=== PATIENT | male | born 1955 | race Caucasian/White ===

== ENCOUNTER 2022-05-07 13:56 | Outpatient (RCR) | payer SELFPAY | END 2022-05-07 23:59 | LOC: NS 13:56 | DX: Z71.3 Dietary counseling and surveillance (principal); R63.5 Abnormal weight gain | CPT/HCPCS: 97802 ==

== ENCOUNTER 2022-05-30 10:59 | Outpatient (RCR) | payer SELFPAY | END 2022-06-04 23:59 | LOC: NS 10:59 | DX: R63.5 Abnormal weight gain (principal) | CPT/HCPCS: 97803 ==

== ENCOUNTER 2022-06-27 10:48 | Outpatient (RCR) | payer SELFPAY | END 2022-07-05 23:59 | LOC: NS 10:48 | DX: Z71.3 Dietary counseling and surveillance (principal); E66.9 Obesity, unspecified | CPT/HCPCS: 97803 ==

== ENCOUNTER → 2022-09-17 | Outpatient (CLI) | payer BC, SELFPAY ==
[2022-09-17 17:11] LABS: BNP,B-Type NATRIURETIC PEPTIDE 163.8 pg/mL (0-100)
[2022-09-22 09:07] LABS: Immunoglobulin E 91 IU/mL (6-495)
[2022-09-22 20:07] LABS: Alternaria tenuis <0.10 kU/L (Class 0); Anti-Centromere B Ab <0.2 AI (0.0-0.9); Anti-Chromatin <0.2 AI (0.0-0.9); Anti-Jo <0.2 AI (0.0-0.9); Anti-Scleroderma-70 AB <0.2 AI (0.0-0.9); Anti-dsDNA Ab <1 IU/mL (0-9); Ash, White <0.10 kU/L (Class 0); Aspergillus fumigatus <0.10 kU/L (Class 0); Bermuda Grass <0.10 kU/L (Class 0); Birch <0.10 kU/L (Class 0); Black Walnut 2.48 kU/L (Class III); Cedar, Mountain <0.10 kU/L (Class 0); Cladosporium herbarum <0.10 kU/L (Class 0); Cockroach, American <0.10 kU/L (Class 0); Cottonwood <0.10 kU/L (Class 0); D farinae Mite 0.39 kU/L (Class I); D pteronyssinus 0.47 kU/L (Class I); Elm, American White 0.23 kU/L (Class 0/I); Immunoglobulin E 91 IU/mL (6-495); Maple/Box Elder <0.10 kU/L (Class 0); Mouse Urine <0.10 kU/L (Class 0); Mulberry, White <0.10 kU/L (Class 0); Oak, White <0.10 kU/L (Class 0); Pecan 5.39 kU/L (Class IV); Penicillium Notatum 0.19 kU/L (Class 0/I); Pigweed, Rough <0.10 kU/L (Class 0); RNP Ab 0.4 AI (0.0-0.9); Ragweed, Short/Common 0.24 kU/L (Class 0/I); Russian Thistle <0.10 kU/L (Class 0); SJOGREN'S Anti-SS-A test < 0.2 AI (0.0-0.9); SJOGREN'S Anti-SS-B test < 0.2 AI (0.0-0.9); Sheep Sorrel <0.10 kU/L (Class 0); Smith Ab <0.2 AI (0.0-0.9); Sycamore, American <0.10 kU/L (Class 0); Timothy Grass <0.10 kU/L (Class 0)
== END | disposition home or self-care (01) ==
PROVIDERS: Referring Provider Internal Medicine; Visit Provider Internal Medicine
DX: R05.9 Cough, unspecified (principal)
CPT/HCPCS: 36415; 82785; 83880; 86003; 86225; 86235

== ENCOUNTER → 2022-09-24 | Outpatient (CLI) | payer MEDICARE, SELFPAY | END | disposition home or self-care (01) | LOC: SL 09:52 | PROVIDERS: Referring Provider Internal Medicine; Visit Provider Internal Medicine | DX: I50.9 Heart failure, unspecified (principal); I48.20 Chronic atrial fibrillation, unspecified; R05.9 Cough, unspecified; F17.200 Nicotine dependence, unspecified, uncomplicated | CPT/HCPCS: 94060; 94726; 94729; 94762 ==

== ENCOUNTER → 2023-01-28 | Outpatient (CLI) | payer MEDICARE, SELFPAY ==
[2023-01-28 13:14] VITALS: PULSE 101; PULSE 61; PULSE 71; PULSE 85; PULSE 97; PULSE 98; O2SAT 94; O2SAT 95; O2SAT 96
--- NOTE | 2023-01-29 05:47 | WT_ITS ---
PSN 6 Minute Walk Test 6 Minute Walk Test 6 Minute Walk Test: 6 Minute Walk Test PSN:6-Minute Walk Test Start: 01/28/23 13:14 Freq: Status: Active Protocol: RESP.6MINW Document 01/28/23 13:14 SFENTON (Rec: 01/28/23 13:16 SFENTON Desktop) 6 Minute Walk Test Date Performed 01/28/23 Time Performed 13:00 Height 5 ft 10 in Weight: 108.862 kg Weight in Pounds 240.[address]: Rosalba Parish SQUIR[employer] MAN Assistive device used: None Pre-test Oxygen Delivery Method Room Air Pulse Ox 95 Pulse Rate (60-100) 61 Dyspnea Olamide Scale (0-10) 0 Exertion Olamide Scale (6-20) 6 1st minute Oxygen Delivery Method Room Air Pulse Ox 95 Pulse Rate (60-100) 85 2nd minute Oxygen Delivery Method Room Air Pulse Ox 94 Pulse Rate (60-100) 97 3rd minute Oxygen Delivery Method Room Air Pulse Ox 95 Pulse Rate (60-100) 97 4th minute Oxygen Delivery Method Room Air Pulse Ox 95 Pulse Rate (60-100) 98 5th minute Oxygen Delivery Method Room Air Pulse Ox 95 Pulse Rate (60-100) 98 6th minute Oxygen Delivery Method Room Air Pulse Ox 96 Pulse Rate (60-100) 101 H Dyspnea Olamide Scale (0-10) 2 Exertion Olamide Scale (6-20) 12 Post-test Oxygen Delivery Method Room Air Pulse Ox 96 Pulse Rate (60-100) 71 Full Laps Walked 22 Partial Lap, Number of Tiles Walked 10 Total Distance Walked (ft) 1308 Interpretation Interpretation: The patient was able to ambulate 1308 feet over the course of 6 minutes on room air with no assistive devices or breaks. The patient experienced no significant desaturation, but did have a gradual climb and heart rate as high as 101 bpm. These findings are consistent with deconditioning. Recommendations Recommendations: No supplemental oxygen is indicated at this time.
== END | disposition home or self-care (01) ==
PROVIDERS: Referring Provider Nurse Practitioner Acute Care; Visit Provider Nurse Practitioner Acute Care
DX: J44.9 Chronic obstructive pulmonary disease, unspecified (principal)
CPT/HCPCS: 94618

== ENCOUNTER 2023-05-16 06:08 | Day surgery (SDC) | payer MEDICARE, SELFPAY ==
[2023-05-16] VITALS (10 sets, daily range): BP systolic 94–112; BP diastolic 63–86; PULSE 50–109; RESP 16–18; TEMP 36.1–36.6; O2SAT 91–99; BMI 37.0
--- NOTE | 2023-05-16 | GALL_PTH ---
PATHOLOGY RESULTS PATIENT: BHARATHI HARRIS [place] [facility] [place][id number] AGE/SX: 68/M ROOM: RE05/16/[address]: Dr. Vernon Hernández MD : 1955 BED: DIS: 05/16/2023 SPEC #: [id number] RECD: 05/16/23 10:00 STATUS: JOVANY MENJIVAR #: [id number] TIGIST: 05/16/23 00:[address]: Vernon Hernández DEPT: SURGICAL PATHOLOGY RECD BY: Adebayo Reid ENTERED: 05/16/23 10:00 SP TYPE: RASHAWN YI DR: MYAH Regan Tissues: Gallbladder, NOS Procedures: Surgery Specimen Level III HEADER OPERATION: Laparoscopic cholecystectomy with IOC PRE-OP DIAGNOSIS: Sludge in gallbladder, biliary dyskinesia TISSUE SUBMITTED: Gallbladder MICROSCOPIC DIAGNOSIS Gallbladder, cholecystectomy: Chronic cholecystitis and cholelithiasis. AM:ida 05/19/2023 MICROSCOPIC DESCRIPTION Slides are reviewed. GROSS DESCRIPTION Received is one container labeled with the patient's name and designated gallbladder. The specimen consists of a gallbladder measuring 7.0 cm in length and up to 4.0 cm in diameter. The external surface is pink-oneil, smooth and glistening for the most part. Focally it is granular, hemorrhagic and contains cautery artifact. The gallbladder contains green-yellow mucoid bile and four irregular black stones measuring in aggregate 1.0 x 0.5 x 0.3 cm and 0.3 to 0.4 cm in greatest dimension. The mucosa is bile-stained and without any mass lesions. The gallbladder wall measures up to 0.2 cm in thickness. Focal area shows increased amount of subserosal fat. Hris Administrator sections from the gallbladder and the cystic duct are submitted in one cassette. / SJ:ida 05/16/2023 TC:3 CPT: 45335
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
--- NOTE | 2023-05-16 06:27 | EKG12_ITS ---
Test Reason : PRE OP Blood Pressure : / mmHG Vent. Rate : 088 BPM Atrial Rate : 091 BPM P-R Int : 000 ms QRS Dur : 086 ms QT Int : 394 ms P-R-T Axes : 000 026 -13 degrees QTc Int : 476 ms Atrial fibrillation Low voltage QRS Abnormal ECG No previous ECGs available Confirmed by Tim Hubbard ([id number]), television news video editor JOSE SAPP ([id number]) on 05/20/2023 9:46:16 AM Referred By: Vernon Hernández Confirmed By:Tim Hubbard
--- NOTE | 2023-05-16 06:55 | PCM.HP.BLA ---
History and Physical Date of Admission: 05/16/23 Intake Vital Signs 01/28/2313:14 04/23/2412:48 Height 5 ft 10 in 5 ft 10 in Weight: 240 lb 237 lb BMI 34.0 BP 102/68 Blood Pressure Location Rt brachial Position Sitting Respiration 16 Pulse 71 Pulse Oximetry (%) 96 Intake Visit Reasons: UPDATE H&P Chief Complaint: gall bladder update H&P Replenishment Buyer Required: No Is patient in pain?: No Allergies naproxen [From Aleve] Allergy (Unknown, Verified 04/23/23 13:48) Other Medications furosemide 40 mg tablet 40 mg PO DAILY 09/10/22 [History Confirmed 04/23/23] metoprolol tartrate 100 mg tablet 100 mg PO BID 09/10/22 [History Confirmed 04/23/23] rivaroxaban 20 mg tablet (Xarelto) 20 mg PO DAILY 09/10/22 [History Confirmed 04/23/23] sacubitril 97 mg-valsartan 103 mg tablet (Entresto) 1 tab PO BID 09/10/22 [History Confirmed 04/23/23] sildenafil 100 mg tablet 100 mg PO DAILY PRN 09/10/22 [History Confirmed 04/23/23] spironolactone 25 mg tablet 25 mg PO DAILY 09/10/22 [History Confirmed 04/23/23] aspirin 81 mg tablet,delayed release (Adult Aspirin Regimen) 81 mg PO DAILY 09/17/22 [History Confirmed 04/23/23] atorvastatin 40 mg tablet 60 mg PO DAILY 11/06/22 [History Confirmed 04/23/23] prednisone 20 mg tablet 60 mg (3 x 20 mg) PO QDAY #15 tabs 11/06/22 [Rx Confirmed 04/23/23] FOR[facility] Medical History History of allergic rhinitis Lung nodule, multiple Nicotine addiction Surgical History History of bilateral knee replacement (~2014) History of foot surgery History of knee surgery History of lumbar surgery History of rhinoplasty Family History Mother Hyperlipemia HypertensionFather Heart disease Social History number of children: 6 current occupational status: retired Smoking Status: Current every day smoker tobacco type: cigarettes alcohol intake: current alcohol intake frequency: other details: Social drinker HPI HPI HPI: Patient is a 68 y/o M I am seeing for an update history and physical for an elective cholecystectomy. Patient states he has had no increase or change in symptoms. Patient notes abdominal pain intermittently. He denies the pain happens with specific foods. Patient was evaluated by his PCP initially for upper abdominal pain. A RUQ u/s was obtained on 11/14/22 at [place] demonstrating gallbladder polyp and sludge. Patient was evaluated by Dr. Hernández in December of last year. At that time, he was not as symptomatic and did not want his gallbladder removed. he notes his symptoms are now becoming more frequent and would like the gallbladder removed. Patient is on Xarelto for A fib. He notes a myocardial infarction and cardiac stents placed in 2012. 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 He is a smoker and consumes at least 1 beer daily. He denies any previous complications or side effects from anesthesia previously. Patient's previous history per Dr. Hernández: Patient is here because he was found to have sludge in his gallbladder. Patient is not having any complaints he said occasionally he feels a small twinge but he is not having any appreciable pain in that area. ROS General General: No weight change, appetite, fatigue, colon cancer, breast cancer or weakness HEENT HEENT: No difficulty swallowing, eye injury, eye surgery, swollen glands or hoarseness Endo Endocrine: No thyroid disease, diabetes mellitus, thyroid cancer, Hair loss, heat intolerance or cold intolerance Skin Skin: No rash or changing moles Breast Breast: No left breast lump, right breast lump, nipple discharge, breast pain, abnormal mammogram, abnormal US or breast enlargement Musc Musculoskeletal: Yes arthritis; No back problems, rheumatoid arthritis, gout or joint pain Cardio Cardiovascular: Yes heart disease, atrial fibrillation, high blood pressure, heart attack and heart stent; No murmur, pacemaker, palpitations, shortness of breat with exertion or chest pain Psych Psychiatric: No depression, anxiety or hearing voices Resp Respiratory: No shortness of breath, No sleep apnea, No cough, No COPD, No asthma, No emphysema and No wheezing Gastro Gastrointestinal: Yes abdominal pain, No nausea or vomiting, No diarrhea, No constipation, No blood in stool, No acid reflux, No hemorrhoids, No ulcers, Yes gallbladder problem and No black,tarry stools [place] Hematologic: Yes blood thinners, No blood disorders, No bleeding, No anemia and No blood clots Neuro Neurologic: No system reviewed and no additional complaints, except as documented, No as per HPI, No abnormal gait, No abnormal hearing, No abnormal movements, No abnormal speech, No behavioral changes, No burning sensations, No confusion, No convulsions, No disequilibrium, No dizziness, No localized weakness, No frequent falls, No headache(s), No lack of coordination, No loss of vision, No memory loss, Yes numbness, No other visual disturbances, No radicular pain, No restless legs, No sensory deficit, No syncope, Yes tingling, No tremor(s), No weakness and No other Exam Const General: cooperative, healthy appearing, comfortable and no acute distress HENND Head: normal to inspection Eyes General: appearance normal, both eyes and all related structures Neck Neck: normal visual inspection Neck mass: Yes Resp Effort & Inspection: normal respiratory effort Auscultation: clear to auscultation bilaterally Cardio Rate: regular rate Rhythm: regular rhythm GI Inspection: normal to inspection Palpation: soft and nontender Musc Cervical Spine: normal cervical lordosis Skin General: no rashes or lesions noted Neuro General: no focal motor deficits and CN's II-XI intact bilaterally Extrem General: normal to inspection Psych Appearance: grossly normal Affect: normal affect Assessment and Plan Assessment and Plan (1) Sludge in gallbladder: Status: Acute (2) Biliary dyskinesia: Status: Acute Plan Dr. Hernández will plan to perform a laparoscopic cholecystectomy with intraoperative cholangiogram. Procedure details, risks and benefits have been explained to the patient. Patient has had the opportunity to ask and have questions answered. Patient will hold his Xarelto for 3 days prior to the procedure. Patient verbally understands and agrees with the plan. Patient would like to proceed with the proposed procedure. I have examined the patient and the H&P has been reviewed. There are no clinical changes since date of exam.
[2023-05-16] MEDS: Lactated Ringers 1,000 ML 15 ML IV ×2 (06:56→09:14)
[2023-05-16] MEDS: Cefotetan 2 GM in 0.9% NS 100 ML IV (07:24)
--- NOTE | 2023-05-16 07:30 | RAD_ITS ---
INDICATION: PAIN EXAMINATION/TECHNIQUE: Cine views intraoperative cholangiogram was obtained.. Total Fluoroscopic Time: 16.9 seconds. OR Radiation dosage index: 12.46 mGy COMPARISON: No relevant prior comparison study available FINDINGS: No filling defects are identified. There is no biliary ductal dilatation. There is free passage into the duodenum. RAD/Cholangiogram/ O R,Initial IMPRESSION: No constant filling defect or common bile duct obstruction is seen. Electronically Signed: Ace Marte MD at 9:23 EST ,
[2023-05-16] MEDS: Bupivacaine 0.25% 30 ML Vial (08:13)
--- NOTE | 2023-05-16 08:20 | PCM.OPRPT ---
Report of Operation Date of Procedure: 05/16/23 Pre-Operative Diagnosis: Biliary colic and gallbladder sludge Post-Operative Diagnosis: Same Surgery/Procedure Performed:: Laparoscopic cholecystectomy with cholangiograms Type of Anesthesia: General/Regional Specimen's removed: Gallbladder Estimated Blood Loss (mL): 10 Description of Procedure: After obtaining informed consent patient was brought back to the operating room. General anesthesia was induced. The abdomen was prepped and draped in usual sterile fashion. A small midline incision was made superior to the umbilicus and deepened to the level of fascia. The fascia was elevated and incised. Next the peritoneum was elevated and incised in the same fashion. Finger sweep was performed and the Tinoco trocar was placed into the abdomen. The balloon was inflated. The abdomen was inflated to 15 mmHg. Next a camera was introduced into the abdomen and the abdomen was inspected. Next under direct visualization three 5-mm ports were placed one subxiphoid and 2 subcostal. Next the gallbladder was elevated and retracted toward the right shoulder. The peritoneum was stripped from the gallbladder. The infundibulum was located and retracted laterally. Next the triangle of Calot was dissected and the cystic duct and cystic artery were identified. Cholangiograms were performed. The Chowdhury clamp was used to clamp across the infundibulum and the catheter needle was inserted into the gallbladder. Under fluoroscopy contrast was instilled into the gallbladder and the common duct, cystic duct as well as proximal hepatic ducts were identified. There was good filling of the duodenum. There were no filling defects noted in the common bile duct. The clamp was removed as well as the needle and the infundibulum was grasped once more. Three hemolock clips were placed across the cystic duct. The cystic duct was then divided leaving 2 clips on the stump. The cystic artery was clipped and divided in the same fashion. The hook cautery was then used to take the gallbladder off of the gallbladder bed. Hemostasis was obtained. Gallbladder fossa was irrigated and no active bleeding or bile leakage was noted. Next the camera was introduced in the subxiphoid port. An Endopouch bag was placed through the umbilical port and the gallbladder was placed into it. The gallbladder was then removed through the umbilical incision. The camera was then reinserted through the umbilical port. The gallbladder fossa was inspected once more and noted to be hemostatic with no leaking bile. The abdomen was suctioned dry. The 5 mm ports were removed under direct visualization. The umbilical port was then removed and the air was removed from the abdomen. Next using an 0 Vicryl suture the umbilical fascia was closed in a [id number] fashion. The umbilical port site was irrigated local anesthetic was administered to all the incisions. All the incisions were closed with interrupted subcuticular 4-0 Monocryl sutures followed by Steri-Strips and dressings. The patient was awoken and taken to PACU in stable condition. Admit VTE Documentation VTE Mechan Device Prophylaxis: SCD's
--- NOTE | 2023-05-16 08:21 | DCINST_ITS ---
Discharge Instructions Procedure Gallbladder Diet Discharge Diet: Light diet - advance as tolerated Activity Discharge Activity: May Not Drive (for 2-3 days or while taking narcotic pain medications.) and - (Do not drive, work heavy equipment or sign legal documents for 24 hours.) May shower in (days): 1 Lifting Restrictions: 20 lbs for 2 weeks Additional Activity Instructions:: Pain medication may cause nausea. You should typically eat light foods as you take your pain medications. Pain medication may also cause constipation. If this is a problem for you, please discuss with your doctor. Dressing / Incision Call your doctor if your incision/area has: Continuous Slow Oozing, Sudden Increased Bleeding, Increased Pain/ Swelling, Increased Redness and Foul Smelling Discharge Call your doctor if you observe: Fever of 101 or Higher Suture Line Care: Avoid Pulling/Pushing and Avoid Pinching/Bending Remove Dressing in: 2 days Additional Dressing/Incision Instructions:: Leave operative bandaids on for 2 days. Remove Steri-Strips in 7 to 10 days. Resume aspirin and Xarelto on Friday. Alternate ibuprofen and Tylenol for pain, oxycodone for breakthrough pain. Follow Up Care Please Follow Up With: Vernon Hernández MD When: Please call to schedule 2 week follow up appointment. [phone] Test Results: Test results from this visit will be discussed in further detail at your follow- up appointment, if applicable. Discharge Plan Admission Attending Provider: Vernon Hernández Primary Care Provider: Janet Seaman Discharge Orders/Prescriptions Prescriptions: New oxycodone 5 mg Tablet 5 - 10 mg PO Q4H PRN PRN (Reason: Pain Score 4-10/10) 5 Days Qty: 20 0RF No Action aspirin [Adult Aspirin Regimen] 81 mg tablet,delayed release (DR/EC) 81 mg PO DAILY sildenafil 100 mg tablet 100 mg PO DAILY PRN (Reason: sexual activity) Rx Instructions: administer 30 minutes to 4 hours before activity Xarelto 20 mg tablet 20 mg PO DAILY Patient Comments: LAST DOSE 2/5 AM Rx Instructions: must administer with evening meal metoprolol tartrate 100 mg tablet 100 mg PO BID Entresto 97-103 mg tablet 1 tab PO BID spironolactone 25 mg tablet 25 mg PO DAILY furosemide 40 mg tablet 40 mg PO DAILY atorvastatin 40 mg tablet 60 mg PO DAILY Referrals / Follow Up: Janet Seaman PA [Primary Care Provider] - Disposition Disposition (needs filled in before D/C Order can be placed): Home, Self Care
[2023-05-16] MEDS: oxyCODONE 5 MG Tablet PO (09:44)
== END 2023-05-16 11:53 | disposition home or self-care (01) ==
LOC: SDC 06:11 → AC 06:17
PROVIDERS: Referring Provider Surgery; Visit Provider Surgery
PROC: (CPT 47610; principal; 2023-05-16 07:10)
DX: K80.10 Calculus of gallbladder with chronic cholecystitis without obstruction (principal); J44.9 Chronic obstructive pulmonary disease, unspecified; I50.9 Heart failure, unspecified; I11.0 Hypertensive heart disease with heart failure; I48.91 Unspecified atrial fibrillation; K80.50 Calculus of bile duct without cholangitis or cholecystitis without obstruction; F17.210 Nicotine dependence, cigarettes, uncomplicated; K82.8 Other specified diseases of gallbladder; K83.8 Other specified diseases of biliary tract; Z79.01 Long term (current) use of anticoagulants; Z95.5 Presence of coronary angioplasty implant and graft; Z79.82 Long term (current) use of aspirin; I25.10 Atherosclerotic heart disease of native coronary artery without angina pectoris; E78.00 Pure hypercholesterolemia, unspecified
CPT/HCPCS: 47563; 00790; 74300; 76000; 88304; 93005; J7120; J2405

== ENCOUNTER → 2023-08-27 | Outpatient (CLI) | payer MEDICARE, SELFPAY ==
--- NOTE | 2023-08-27 13:03 | CT_ITS ---
STUDY: LOW DOSE CT LUNG CANCER SCREENING REASON FOR EXAM: Male, 68 years old. Three quarter pack per day smoker x50 years RADIATION DOSAGE (If Supplied By Facility): CTDIvol = ( 4.02 ) mGy, DLP = ( 133.91 ) mGycm TECHNIQUE: No contrast was administered. Low dose technique was utilized (average mAS-38 and kVp 120). 1.25 mm axial source images with a slice interval of 1.25-mm were reconstructed in lung windows. 2.5 mm axial source images with a slice interval of 2.5-mm were reconstructed in lung windows. 5.0 mm axial source images with a slice interval of 5.0-mm were reconstructed in soft tissue windows. COMPARISON: None. FINDINGS: Lung windows show the lungs to be normally expanded. Chronic interstitial changes noted in both lung palacio with peribronchial thickening suggesting chronic bronchitis. No evidence of an organized infiltrate or effusion. No suspicious noncalcified mass or nodule. Limited soft tissue windows show normal-appearing thyroid gland. There are calcified coronary vessels. No pleural or pericardial effusions. Bony structures show degenerative change, limited cuts of the upper abdomen do not show suspicious abnormality CT/Low Dose CT Lung Screening IMPRESSION: Lung-RADS category 2 - Continue annual screening with LDCT in 12 months. IMPORTANT NOTES FOR USE: ACR Lung-RADS Version 1.1 Assessment Categories Release Date: 2018 Category: Coded 0-4 bases on nodule(s) with highest degree of suspicion. Negative screen is defined as categories 1 and 2; a positive screen is defined as categories 3 and 4. Category 3 and 4A nodules that are unchanged on interval CT should be coded as category 2, and individuals returned to screening in 12 months. Category 4X: Category 3 or 4 nodules with additional imaging findings that increase the suspicion of lung cancer, such as spiculation, GGN that doubles in size in 1 year, enlarged lymph notes, etc. Category Modifiers: S (significant finding unrelated to lung cancer) Electronically Signed: Neftali Cisse MD at 15:17 EDT ,
== END | disposition home or self-care (01) ==
LOC: CT 13:03
PROVIDERS: Referring Provider Nurse Practitioner Acute Care; Visit Provider Nurse Practitioner Acute Care
DX: F17.210 Nicotine dependence, cigarettes, uncomplicated (principal)
CPT/HCPCS: 71271

== ENCOUNTER → 2024-01-15 | Outpatient (CLI) | payer MEDICARE, SELFPAY ==
--- NOTE | 2024-01-15 | CYST_PTH ---
PATIENT: BHARATHI HARRIS LOC: [facility] U#:[id number] AGE/SX: 68/M ROOM: RE01/15/[address]: AME Delgado : 1955 BED: DIS: 01/15/2024 SPEC #: [id number] RECD: 01/16/24 10:36 STATUS: [facility] OTTO #: [id number] TIGIST: 01/15/24 00:[address]: Sharonda Crisostomo NP DEPT: SURGICAL PATHOLOGY RECD BY: Carissa Singleton ENTERED: 01/16/24 10:37 SP TYPE: Cyst OTHR DR: MD Janet Arias PA Tissues: CYST Procedures: Surgery Specimen Level III HEADER OPERATION: Biopsy scrotum cyst PRE-OP DIAGNOSIS: Scrotum cyst TISSUE SUBMITTED: Scrotum cyst MICROSCOPIC DIAGNOSIS Scrotal cyst, excision: Benign fibroepithelial polyp. AM.mr 01/19/2024 MICROSCOPIC DESCRIPTION Slides are reviewed. GROSS DESCRIPTION Received is one container labeled with the patient's name and not further designated. The specimen consists of a single irregular fragment of oneil tissue measuring 0.6 x 0.5 x 0.1cm. The specimen is submitted in its entirety in one cassette. AM. 01/16/2024 TC:5 CPT:66511
== END | disposition home or self-care (01) ==
LOC: LABSPEC 17:13
PROVIDERS: Referring Provider Nurse Practitioner Family; Visit Provider Nurse Practitioner Family
DX: L02.215 Cutaneous abscess of perineum (principal)
CPT/HCPCS: 87070; 87075; 87077; 87186; 87205; 88304

== ENCOUNTER 2024-01-26 11:15 | Outpatient (RCR) | payer MEDICARE, SELFPAY ==
[2024-01-19 10:03] VITALS: BP 88/57; PULSE 77; RESP 16; TEMP 36.3
--- NOTE | 2024-01-19 11:21 | HP.PCM_ITS ---
History of Present Illness Date of Service: 01/19/24 Chief Complaint: Right perineum/scrotal area wound History of Wound: Romaine Carpenter is a 68-year-old male who presents for evaluation of a potentially infected perineal epidermal inclusion cyst. He reports the cyst has been there for several weeks but is recently become hot and painful. It is located on the very posterior aspect of his scrotum/on his perineum on the right side. Patient was prescribed Keflex by a previous provider and this helped some, but he was referred to me for definitive management. Pt has a history of afib (currently on blood thinner), cardiac catherization, lung nodule and high cholesterol. He does not smoke. On 01/15/24 Dr. Gary excised the cyst in the office. Pathology and cultures are pending. Patient has been doing Sitz baths twice daily. He has been tolerating the Keflex. Today he denies any fever, chills, nausea or vomiting. Progress of Wound: Small wound on right perineum/scrotal area. It is stable. There is a black scab from the silver nitrate that was used when it was excised. He states he is not having any discomfort. He is tolerating his sitz baths and Keflex well. His pathology and wound cultures are not back yet. [facility] Medical History High cholesterol Excessive bleeding Smoker Cardiology follow-up encounter History of atrial fibrillation History of allergic rhinitis Lung nodule, multiple Nicotine addiction Home Medications ?Medication ?Instructions ?Recorded ?Last Taken ?Type furosemide 40 mg tablet 40 mg PO DAILY 09/10/22 Unknown History metoprolol tartrate 100 mg tablet 100 mg PO BID 09/10/22 Unknown History rivaroxaban 20 mg tablet (Xarelto) 20 mg PO DAILY 09/10/22 Unknown History sacubitril 97 mg-valsartan 103 mg 1 tab PO BID 09/10/22 Unknown History tablet (Entresto) sildenafil 100 mg tablet 100 mg PO DAILY PRN sexual activity 09/10/22 Unknown History spironolactone 25 mg tablet 25 mg PO DAILY 09/10/22 Unknown History aspirin 81 mg tablet,delayed 81 mg PO DAILY 09/17/22 Unknown History release (Adult Aspirin Regimen) atorvastatin 40 mg tablet 60 mg PO DAILY 11/06/22 Unknown History varenicline 0.5 mg (11)-1 mg (42) 1 tab PO BID 11/11/23 Unknown History tablets in a dose pack cephalexin 500 mg capsule 500 mg PO BID 01/15/24 Unknown History Allergy/AdvReac Type Severity Reaction Status Date / Time naproxen (From Aleve) Allergy Unknown Hives Verified 01/19/24 10:22 Family History Mother Hyperlipemia Hypertension Father Heart disease Surgical History History of coronary artery stent placement History of foot surgery History of rhinoplasty History of knee surgery History of lumbar surgery History of bilateral knee replacement (~2014) Social History number of children: 6 current occupational status: retired Smoking Status: Current every day smoker tobacco type: cigarettes alcohol intake: current alcohol intake frequency: other details: Social drinker additional social history: denies vaping, denies marijuana use, denies edibles, takes aspirin daily, denies ibuprofen use denies hx of blood clotting issues. ROS Constitutional Constitutional: Denies chills or fever(s) Eyes Eyes: Reports none ENT HEENT: Reports none Cardiovascular Cardiovascular: Denies chest pain or dyspnea Respiratory/Chest Respiratory/Chest: Denies cough or dyspnea Gastrointestinal Gastrointestinal: Denies diarrhea, nausea or vomiting Genitourinary Genitourinary: Reports none Musculoskeletal Musculoskeletal: Reports none Integumentary Integumentary: Reports wounds Neurologic Neurologic: Reports none Psychiatric Psychiatric: Reports none Endocrine Endocrinology: Reports none Hematologic/Lymphatic Hematologic/Lymphatic: Reports none Allergic/Immunologic Allergic/Immunologic: Reports none Vital Signs Vital Signs Vital Signs: 01/19/24 10:03 Temperature 97.4 F L Temperature Source Temporal Pulse Rate 77 Respiratory Rate 16 Blood Pressure 88/57 L Blood Pressure Mean 67 Blood Pressure Source Monitor Physical Exam Const alert and oriented x3 General Appearance: cooperative and comfortable HEENT normocephalic Head and Scalp: atraumatic Eyes General Eye: normal appearance of both eyes Neck full ROM Resp normal respiratory effort Effort and Inspection: able to speak in complete sentences Cardio regular rate GI non-tender Back/Spine normal ROM Extremity full ROM Skin Wound Narrative: Small wound on right perineum near scrotum. No erythema. It is healing well. There is a black scab in place on the area (from the silver nitrate used when excising the area). Neuro oriented x3 and moves all extremities Psych mental status grossly normal, thought process normal and cooperative Debridement Note Debridement Note No debridement was completed: No debridement was completed today Post-Debridement Measurements and Additional Note: Post-Debridement Measurements/Treatment CLARA - Nurse 1 - General Ulcer Assessment Start: 01/19/24 10:00 Freq: Status: Active Protocol: FERN Activity Type Activity Date Activity User E-sign Co-sign Detail Recorded Client Recorded Date Recorded By Document 01/19/24 10:03 DL [id number] 01/19/24 10:19 DL 01/19/24 10:03 WC - Today's Visit Information Type of service Initial Visit Arrival Mode Ambulatory Transfer Assistance None Patient Identification Verified (Name & Yes ) Patient Requires Transmission-Based No Precautions Vital Signs Temperature (97.8 F-99.1 F) 97.4 F L Temperature Source Temporal Pulse Rate (60-100) 77 Pulse Location Monitor Respiratory Rate (12-18) 16 Respiratory rate source Observation Blood Pressure (90/60-120/80) 88/57 L Blood Pressure Mean 67 Source Monitor Pain Scale: 0-10 Numeric Is Patient Pain Free? Yes Communication Assessment Preferred language [place]ian Payroll Consultant Required No Able to Read Yes Able to Write No Communication Tools None Caregiver Communication Skills No Impairment Impairment Left Hearing Abillity Normal Visual Assistive Devices None Teaching Assessment Preferences Verbal,Written, Demonstration Barriers to Learning None Readiness To Learn Good Willingness to Engage in Self Management Med Activies Readiness to Engage in Self Management Med Activities Anxiety Level Calm Cooperation Cooperative Perception Coherent Interest in Health Problem Asks Questions Education Importance Acknowledges Need Does Patient Smoke tobacco or other Yes substances Smoking Status Current every day smoker Is Patient Diabetic No Functional Assessment Recent Decline in Ability to Perform Denies Any Declines Culture/Anabaptist/Yarn Sizer Cultural/Anabaptist Needs that may affect No Treatment Plan Would you allow our hospital guide dog trainer to No meet you for the purpose of spiritual/ emotional support? Yarn Sizer to contact place of buddhist No Teaching: Wound Center *Welcome to the Wound Center -Person Taught Patient CLARA - Nurse 1 - General Ulcer Measurement Start: 01/19/24 10:00 Freq: Status: Active Protocol: Activity Type Activity Date Activity User E-sign Co-sign Detail Recorded Client Recorded Date Recorded By Document 01/19/24 10:03 [id number] 01/19/24 10:19 DL 01/19/24 10:03 Wound Center Nurse 1 #1 Scrotum/Perineum -Current Size (cm) - Length 0.7 -Current Size (cm) - Width 0.5 -Current Size (cm) - Depth 0.2 -Total Square Cm 0.35 -Photo Taken Yes -Exudate Amt None Present -Wound Margin Distinct, Outline Attached -Granulation Amt None Present (0 %) -Necrosis Amt Large (67-100%) -Necrotic Tissue Type Adherent Slough -Structure Exposed N/A -Texture (Jenna-wound Skin Appearance) Scarring -Moisture (Jenna-wound Skin Appearance) No Abnormality -Color (Jenna-wound Skin Appearance) No Abnormality -Temperature (Jenna-wound Skin No Abnormality Appearance) (Pt Warm) -Tenderness on Palpation (Jenna-wound No Skin Appearance) -Ulcer Cleansing Soap and Water -Anesthetic Used 5% Lidocaine Gel - Nurse 2 - General Ulcer CM Notes Start: 01/19/24 10:00 Freq: Status: Active Protocol: Activity Type Activity Date Activity User E-sign Co-sign Detail Recorded Client Recorded Date Recorded By Document 01/19/24 10:33 [facility] [id number] 01/19/24 10:38 [facility] 01/19/24 10:33 Wound Center Nurse 2 -Time 10:34 -Post Debridement (cm) - Length 0.1 -Post Debridement (cm) - Width 0.1 -Post Debridement (cm) - Depth 0.1 -Total Square (Post) (cm) 0.01 -Area of Debridement (cm) - Length 0.1 -Area of Debridement (cm) - Width 0.1 -Total Square (Area) (cm) 0.01 -Wound/Ulcer Outcome Not Healed -Bleeding Controlled with NA Pain Scale: 0-10 Numeric Is Patient Pain Free? Yes - Nurse 3 - General Ulcer D/C NN Start: 01/19/24 10:00 Freq: Status: Active Protocol: Activity Type Activity Date Activity User E-sign Co-sign Detail Recorded Client Recorded Date Recorded By Document 01/19/24 10:54 [id number] 01/19/24 10:57 DL 10/14/24 10:54 Wound Care Center Nurse 3 #1 Scrotum/Perineum -Ulcer Cleansing Rinsed/ Irrigated with Saline -Foul Odor after Cleansing No -Wound Comment(s) No dressing needed, pt to continue Sitz Baths as previously ordered Treatment Response Procedure Tolerated Well Pain Scale: 0-10 Numeric Is Patient Pain Free? Yes WC - Visit Discharge Discharge Condition Stable Ambulatory Status Ambulatory Transportation Private Auto Charges/Coding Procedures Integumentary [id number]: [id number] Global Visit ((10 day global)) Assessment/Plan Assessment/Plan (1) Abscess of perineum: CODE(S): L02.215 - Cutaneous abscess of perineum (2) Smoking greater than 20 pack years: CODE(S): F17.210 - Nicotine dependence, cigarettes, uncomplicated PLAN: Plan Patient seen at the wound healing center today for follow up from the excision of the cyst from last week. He states he is doing well with the sitz baths. The pathology and the cultures are still pending. Continue Keflex and the sitz baths. Will phone him with results from the pathology and cultures. Encouraged patient to stop smoking as it may have deleterious effects on wound healing. Follow up one week.
--- NOTE | 2024-01-20 08:59 | WC ---
PHOTO JASS AREA 01/19/24
[2024-01-26 08:13] VITALS: BP 82/42; PULSE 109; RESP 18; TEMP 36.7
--- NOTE | 2024-01-26 11:04 | PCM.WC.PN ---
History of Present Illness Date of Service: 01/26/24 Chief Complaint: Right perineum/scrotal area wound History of Wound: Romaine Carpenter is a 68-year-old male who presents for evaluation of a potentially infected perineal epidermal inclusion cyst. He reports the cyst has been there for several weeks but is recently become hot and painful. It is located on the very posterior aspect of his scrotum/on his perineum on the right side. Patient was prescribed Keflex by a previous provider and this helped some, but he was referred to me for definitive management. Pt has a history of afib (currently on blood thinner), cardiac catherization, lung nodule and high cholesterol. He does not smoke. On 01/15/24 Dr. Gary excised the cyst in the office. Pathology showed benign fibroepithelial polyp. Wound culture showed Winkia neuii (very rare) and MRSE (very rare). On 01/21/24 I spoke with both the clinical pharmacist about these culture results and then infectious disease, Dr. Vilchis. Patient was not having any clinical signs of infection. Dr. Vilchis stated that these bacteria do not need treated since is showing very rare amount and most likely is contaminant and patient is not having any clinical signs of infection. Patient has been doing Sitz baths twice daily. He tolerated the Keflex. Today he denies any fever, chills, nausea or vomiting. Progress of Wound: The small wound on right perineum/scrotal area is healed. He states he stopped doing sitz baths a couple days ago. There is no clinical sign of infection. He has a healed scar on his right buttocks from a previous sore that healed on its own. He states that it does not cause him any discomfort, it is not erythematous and is healed. His pathology showed benign fibroepithelial polyp. Objective Data Objective Data Vital Signs: Vital Signs Temp Pulse Resp BP O2 Del Method 98.0 F 109 H 18 82/42 L Room Air 01/26/24 08:13 01/26/24 08:13 01/26/24 08:13 01/26/24 08:13 01/26/24 08:13 Oxygen Delivery Method Room Air Charges/Coding Visit Charges Office Visits / Consults: 98465 OV L3 Est 20min Physical Exam Const alert and oriented x3 General Appearance: cooperative and comfortable HEENT normocephalic Head and Scalp: atraumatic Eyes General Eye: normal appearance of both eyes Neck full ROM Resp normal respiratory effort Effort and Inspection: able to speak in complete sentences Cardio regular rate GI non-tender Back/Spine normal ROM Extremity full ROM Skin Wound Narrative: Small wound on right perineum near scrotum is healed. No erythema. No clinical signs of infection. Neuro oriented x3 and moves all extremities Psych mental status grossly normal, thought process normal and cooperative Debridement Note Debridement Note Post-Debridement Measurements and Additional Note: Post-Debridement Measurements/Treatment - Nurse 1 - General Ulcer Assessment Start: 01/19/24 10:00 Freq: Status: Active Protocol: [email or web address] Activity Type Activity Date Activity User E-sign Co-sign Detail Recorded Client Recorded Date Recorded By Document 01/19/24 10:03 DL [id number] 01/19/24 10:19 DL Document 01/26/24 08:13 KW [id number] 01/26/24 08:18 KW 01/19/24 01/26/24 10:03 08:13 - Today's Visit Information Type of service Initial Visit Follow-up Visit (Physician/METAL RECLAMATION KETTLE TENDER ) Arrival Mode Ambulatory Ambulatory Transfer Assistance None Patient Identification Verified (Name & Yes Yes ) Patient Requires Transmission-Based No Precautions Vital Signs Temperature (97.8 F-99.1 F) 97.4 F L 98.0 F Temperature Source Temporal Temporal Pulse Rate (60-100) 77 109 H Pulse Location Monitor Monitor Respiratory Rate (12-18) 16 18 Respiratory rate source Observation Observation Oxygen Delivery Method Room Air Blood Pressure (90/60-120/80) 88/57 L 82/42 L Blood Pressure Mean (mm Hg) 67 55 Source Monitor Monitor Position Semi-Fowlers Blood Pressure Location Right Arm History Since Last Visit- (Skip if this is Patient's initial visit) Have you changed medications since your No last visit? Any new allergies or adverse reactions No Had a fall/change in ADL's that may No increase risk of falls Signs or symptoms of abuse and/or No neglect since last visit Have you been in the hospital since your No last visit? Has dressing in place as prescribed Yes Has compression in place as prescribed N/A Has offloadiing in place as prescribed N/A Experienced any changes in pain level or No management Left Footwear Regular Shoe Right Footwear Regular Shoe Pain Scale: 0-10 Numeric Is Patient Pain Free? Yes Yes Communication Assessment Preferred language [place] [employer] [place] Required No Able to Read Yes Able to Write No Communication Tools None Caregiver Communication Skills No Impairment Impairment Left Hearing Abillity Normal Visual Assistive Devices None Teaching Assessment Preferences Verbal,Written, Demonstration Barriers to Learning None Readiness To Learn Good Willingness to Engage in Self Management Med Activies Readiness to Engage in Self Management Med Activities Anxiety Level Calm Cooperation Cooperative Perception Coherent Interest in Health Problem Asks Questions Education Importance Acknowledges Need Does Patient Smoke tobacco or other Yes substances Smoking Status Current every day smoker Is Patient Diabetic No Functional Assessment Recent Decline in Ability to Perform Denies Any Declines Culture/Latter Day/Moderate Needs Teacher Cultural/Latter Day Needs that may affect No Treatment Plan Would you allow our hospital utilization management nurse to No meet you for the purpose of spiritual/ emotional support? Moderate Needs Teacher to contact place of pentecostalism No Teaching: Wound Center *Welcome to the Wound Center -Person Taught Patient WC - Nurse 1 - General Ulcer Measurement Start: 01/19/24 10:00 Freq: Status: Active Protocol: Activity Type Activity Date Activity User E-sign Co-sign Detail Recorded Client Recorded Date Recorded By Document 01/19/24 10:03 DL [id number] 01/19/24 10:19 DL Document 01/26/24 08:13 KW [id number] 01/26/24 08:18 KW 01/19/24 01/26/24 10:03 08:13 Wound Center Nurse 1 #1 Scrotum/Perineum -Current Size (cm) - Length 0.7 0.1 -Current Size (cm) - Width 0.5 0.1 -Current Size (cm) - Depth 0.2 0.1 -Total Square Cm 0.35 0.01 -Photo Taken Yes -Exudate Amt None Present None Present -Wound Margin Distinct, Outline Attached -Granulation Amt None Present (0 %) -Necrosis Amt Large (67-100%) -Necrotic Tissue Type Adherent Slough -Structure Exposed N/A -Texture (Jenna-wound Skin Appearance) Scarring Assessed -Moisture (Jenna-wound Skin Appearance) No Abnormality Assessed -Color (Jenna-wound Skin Appearance) No Abnormality Assessed -Temperature (Jenna-wound Skin No Abnormality No Abnormality Appearance) (Pt Warm) (Pt Warm) -Tenderness on Palpation (Jenna-wound No No Skin Appearance) -Ulcer Cleansing Soap and Water -Foul Odor after Cleansing No -Anesthetic Used 5% Lidocaine Gel - Nurse 2 - General Ulcer CM Notes Start: 01/19/24 10:00 Freq: Status: Active Protocol: Activity Type Activity Date Activity User E-sign Co-sign Detail Recorded Client Recorded Date Recorded By Document 01/19/24 10:33 [facility] [id number] 01/19/24 10:38 [facility] Document 01/26/24 08:44 ARIS [id number] 01/26/24 08:48 01/19/24 01/26/24 10:33 08:44 Wound Center Nurse 2 #1 Scrotum/Perineum -Time 10:34 -Correct Patient No -Correct Side, Site, Position No -Correct Procedure No -Procedure Performed No -Post Debridement (cm) - Length 0.1 0 -Post Debridement (cm) - Width 0.1 0 -Post Debridement (cm) - Depth 0.1 0 -Total Square (Post) (cm) 0.01 0 -Area of Debridement (cm) - Length 0.1 0 -Area of Debridement (cm) - Width 0.1 0 -Total Square (Area) (cm) 0.01 0 -Wound/Ulcer Outcome Not Healed Healed- Epithelialized -Bleeding Controlled with NA Pain Scale: 0-10 Numeric Is Patient Pain Free? Yes Yes - Nurse 3 - General Ulcer D/C NN Start: 01/19/24 10:00 Freq: Status: Active Protocol: Activity Type Activity Date Activity User E-sign Co-sign Detail Recorded Client Recorded Date Recorded By Document 01/19/24 10:54 [id number] 01/19/24 10:57 Document 01/26/24 08:49 ARIS [id number] 01/26/24 08:49 01/19/24 01/26/24 10:54 08:49 Wound Care Center Nurse 3 #1 Scrotum/Perineum -Ulcer Cleansing Rinsed/ Irrigated with Saline -Foul Odor after Cleansing No -Wound Comment(s) No dressing needed, pt to continue Sitz Baths as previously ordered Treatment Response Procedure Tolerated Well Pain Scale: 0-10 Numeric Is Patient Pain Free? Yes Yes WC - Visit Discharge Discharge Condition Stable Stable Ambulatory Status Ambulatory Ambulatory Transportation Private Auto Private Auto Medication Reconcilliation completed & Yes provided to patient/care provider Clinical Summary of Care Provided Yes Assessment/Plan Assessment/Plan (1) Abscess of perineum: CODE(S): L02.215 - Cutaneous abscess of perineum (2) Smoking greater than 20 pack years: CODE(S): F17.210 - Nicotine dependence, cigarettes, uncomplicated PLAN: Plan Patient seen at the wound healing center today for follow up from the excision of the cyst from last week. He states he is doing well with the sitz baths. Pathology from 01/15/24 showed benign fibroepithelial polyp Wound culture showed Winkia neuii (very rare) and MRSE (very rare). On 01/21/24 I spoke with infectious disease, Dr. Vilchis, about these culture results. Patient was not having any clinical signs of infection. He stated that these bacteria do not need treated since is showing very rare amount and most likely is contaminant. Completed Keflex. Encouraged patient to stop smoking as it may have deleterious effects on wound healing. Follow up 3 months in our office. Instructed him to come in sooner if he develops any signs of infection.
== END 2024-01-26 16:58 | disposition home or self-care (01) ==
LOC: WC 11:15
PROVIDERS: Referring Provider Surgery Plastic and Reconstructive Surgery; Visit Provider Nurse Practitioner Family
DX: L02.215 Cutaneous abscess of perineum (principal); I48.91 Unspecified atrial fibrillation; E78.00 Pure hypercholesterolemia, unspecified; F17.210 Nicotine dependence, cigarettes, uncomplicated; Z79.82 Long term (current) use of aspirin; Z79.01 Long term (current) use of anticoagulants; Z79.899 Other long term (current) drug therapy; Z95.5 Presence of coronary angioplasty implant and graft; Z96.653 Presence of artificial knee joint, bilateral
CPT/HCPCS: 99213; G0463

== ENCOUNTER → 2024-08-27 | Outpatient (CLI) | payer MEDICARE, SELFPAY ==
--- NOTE | 2024-08-27 12:50 | CT_ITS ---
PROCEDURE: LOW DOSE CT LUNG SCREENING 08/27/2024 REASON FOR EXAM: SMOKING TECHNIQUE: Low Dose CT Lung screening without contrast. Coronal and Sagittal reconstruction series were provided. One or more dose reduction techniques were used (e.g., Automated exposure control, adjustment of the mA and/or kV according to patient size, use of iterative reconstruction technique). REFERENCE LINK: [facility] Lung-RADS RADIATION DOSE SUMMARY: CTDlvol: 4.0 mGy DLP: 144 mGycm COMPARISON: None FINDINGS: Lymph Nodes:No lymphadenopathy. Heart and Vasculature:Borderline enlarged. Severe coronary calcification. There is calcification along the inferior wall of the left ventricle. Lungs and Airways: Central airways are clear. There is mild diffuse bronchial wall thickening. No suspicious pulmonary nodule. There is a calcified granuloma in the left upper lobe (series 2 image 123). Triangular perifissural nodule in the left upper lobe measuring 4 mm (image 60). Pleura:No effusion Upper Abdomen:Unremarkable Bones:Degenerative changes of the thoracic spine. Soft tissues: Bilateral gynecomastia. CT/Low Dose CT Lung Screening IMPRESSION: Lung-RADS Category: 2S BENIGN (BASED ON IMAGING FEATURES OR INDOLENT BEHAVIOR). RECOMMEND 12-MONTH SCREENING LDCT. Other Significant Findings: Severe coronary calcifications. Calcification audra g the inferior wall of the left ventricle may be the result of a prior insult. Reading Location: [facility]
== END | disposition home or self-care (01) ==
LOC: CT 12:44
PROVIDERS: Referring Provider Nurse Practitioner Acute Care; Visit Provider Nurse Practitioner Acute Care
DX: F17.210 Nicotine dependence, cigarettes, uncomplicated (principal)
CPT/HCPCS: 71271